=== PATIENT | male | born 2000 | race Hispanic/Latino ===

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

== ENCOUNTER 2019-02-24 16:07 | Emergency (ER) | payer SELFPAY ==
[2019-02-24] MEDS ORDERED: Lidocaine 4% Cream 5 GM TUBE w/ Tegaderm ONE (17:06)
== END 2019-02-24 17:55 | disposition home or self-care (01) ==
LOC: ERS 16:07
DX: L02.414 Cutaneous abscess of left upper limb (principal)
CPT/HCPCS: 10060

== ENCOUNTER 2019-10-28 17:34 | Emergency (ER) | payer SELFPAY ==
[2019-10-28] MEDS ORDERED: Naproxen 500 MG TAB ONE (18:43)
--- NOTE | 2019-10-28 19:16 | RAD ---
3 views left great toe:: 10/28/2019 COMPARISON: None HISTORY: Injury, trauma, pain FINDINGS: Soft tissue swelling is seen involving the great toe distally. No displaced fracture or dis location. No radiopaque foreign body. IMPRESSION: Soft tissue swelling with no displaced fracture or dislocation seen.
== END 2019-10-28 19:35 | disposition home or self-care (01) ==
LOC: ERS 17:34
DX: L60.0 Ingrowing nail (principal)